=== PATIENT | female | born 1960 | race Caucasian/White ===

== ENCOUNTER 2018-01-10 16:03 | Inpatient (IN) | payer MEDICAID ==
[~2018-01-10] VITALS: Ht 157.5 cm; Wt 64.5 kg
[2018-01-10] MEDS ORDERED: LORAZEPAM 2 MG/1 ML VIAL IV ONE ×3 (16:30→18:30)
[2018-01-10] MEDS ORDERED: LORAZEPAM 2 MG/1 ML VIAL ONE ×3 (16:38→18:56)
[2018-01-10 16:39] LABS: BASOPHILS % (AUTO) 0.2 % (0.0-2.0); EOSINOPHILS % (AUTO) 0.4 % (0.0-7.0); HEMATOCRIT 39.8 % (31.2-41.9); HEMOGLOBIN 13.5 g/dL (10.9-14.3); LYMPHOCYTES # (AUTO) 0.3 K/uL (20.0-40.0); LYMPHOCYTES % (AUTO) 11.8 % (20.5-51.5); MEAN CORPUSCULAR HEMOGLOBIN 33.5 uug (24.7-32.8); MEAN CORPUSCULAR HGB CONC 34 g/dL (32.3-35.6); MEAN CORPUSCULAR VOLUME 98.5 fL (75.5-95.3); NEUTROPHILS # (AUTO) 1.9 K/uL (1.8-8.9); NEUTROPHILS % (AUTO) 86.6 % (38.5-71.5); PLATELET COUNT (AUTO) 165 K/uL (179-408); RED BLOOD CELL COUNT(AUTO) 4.04 MIL/uL (3.63-4.92); WHITE BLOOD COUNT (AUTO) 2.2 K/uL (3.8-11.8)
[2018-01-10 16:51] LABS: CARBON DIOXIDE 24 mmol/L (21-32); CHLORIDE 103 mmol/L (98-107); CREATININE 0.9 mg/dL (0.6-1.3); GLUCOSE 94 mg/dL (74-106); POTASSIUM 3.5 mmol/L (3.5-5.1); UREA NITROGEN, BLOOD 14 mg/dL (7-18)
[2018-01-10 16:58] LABS: ALANINE AMINOTRANSFERASE 54 U/L (14-59); ALKALINE PHOSPHATASE 104 U/L (50-136); ASPARTATE AMINOTRANSFERASE 58 U/L (15-37); BILIRUBIN,DIRECT 0.3 mg/dL (0.0-0.2); BILIRUBIN,TOTAL 0.9 mg/dL (0.2-1.0); CREATINE KINASE, TOTAL 439 U/L (26-192); TOTAL PROTEIN, SERUM 6.9 g/dL (6.4-8.2)
[2018-01-10 16:59] LABS: ACETAMINOPHEN < 2.0 ug/mL (10-30)
[2018-01-10 17:00] LABS: ETHANOL < 3 MG/DL (0-0)
[2018-01-10 17:05] LABS: THYROID STIMULATING HORMONE 0.722 mIU/mL (0.358-3.740)
[2018-01-10 17:40] LABS: *BILIRUBIN,URIN NEGATIVE (NEGATIVE); *BLOOD, URINE 2+ (NEGATIVE); *CLARITY,URINE SLIGHTLY CLOUDY (CLEAR); *COLOR,URINE YELLOW (YELLOW); *KETONES,URINE NEGATIVE (NEGATIVE); *PROTEIN,URINE 2+ (NEGATIVE); *UROBILINOGEN,URINE 0.2 E.U./dl (NORMAL); LEUKOCYTE ESTERASE ,URINE 2+ (NEGATIVE); NITRITE, URINE NEGATIVE (NEGATIVE); PH,URINE 6.5 (5.0-8.0); UGLUCOSE NEGATIVE (NEGATIVE)
[2018-01-10 17:45] LABS: *AMPHETAMINE, URINE NEGATIVE (NEGATIVE); *BARBITURATE, URINE NEGATIVE (NEGATIVE); *CANNABINOID, URINE NEGATIVE (NEGATIVE); *COCCAINE, URINE NEGATIVE (NEGATIVE); *OPIATE, URINE NEGATIVE (NEGATIVE); *PHENCYCLIDINE SCREEN,URINE NEGATIVE (NEGATIVE)
[2018-01-10] MEDS ORDERED: IV NORMAL SALINE 500 ML BAG IV ONE (17:45)
[2018-01-10 17:56] LABS: BACTERIA,URINE MODERATE /HPF (NONE SEEN); SQUAMOUS EPITHELIAL CELL,UR FEW /HPF (NONE SEEN); WBC,URINE 20-50 /HPF (0-3)
[2018-01-10] MEDS ORDERED: CEFTRIAXONE 1 G VIAL ONE ×2 (17:59→21:41)
[2018-01-10] MEDS ORDERED: IV NORMAL SALINE 1000 ML BAG IV ONE (18:00)
[2018-01-10] MEDS ORDERED: CEFTRIAXONE 2 G in IV DEXTROSE 5% 100 ML IV ONE (18:00)
[2018-01-10] MEDS ORDERED: LIDOCAINE HCL 2% 20 ML VIAL ONE (18:35)
[2018-01-10] MEDS ORDERED: ACETAMINOPHEN ES 500 MG TABLET ONE (18:55)
[2018-01-10] MEDS ORDERED: VANCOMYCIN IV 200 ML ONE (18:56)
[2018-01-10] MEDS ORDERED: ACETAMINOPHEN ES 500 MG TABLET PO ONE (19:00)
[2018-01-10] MEDS ORDERED: VANCOMYCIN IV 1,000 MG in IV DEXTROSE 5% 250 ML IV ONE (19:00)
[2018-01-10] MEDS ORDERED: BENA40TA8 PO (19:18)
[2018-01-10] MEDS ORDERED: DULO30CA2 PO (19:18)
[2018-01-10] MEDS ORDERED: ATOR20TA PO (19:18)
[2018-01-10 19:40] LABS: CSF GLUCOSE 60 mg/dL (40-70); CSF PROTEIN 34 mg/dL (15-45)
[2018-01-10] MEDS ORDERED: CEFTRIAXONE 1 G in IV DEXTROSE 5% 50 ML IV SCH (20:15)
[2018-01-10] MEDS ORDERED: ONDANSETRON 4 MG/2 ML VIAL IV PRN (20:15)
[2018-01-10] MEDS ORDERED: TEMAZEPAM 15 MG CAPSULE PO PRN (20:15)
[2018-01-10] MEDS ORDERED: ATORVASTATIN 20 MG TABLET PO SCH (21:00)
[2018-01-10 21:36] VITALS: BP 112/62
[2018-01-10] MEDS: ACETAMINOPHEN 325 MG TABLET PO PRN (21:40)
[2018-01-10] MEDS: POTASSIUM CHLORIDE 20 MEQ in IV NS 1000 ML 1,000 ML IV PRN (21:44)
[2018-01-11 00:05] VITALS: BP 105/60
[2018-01-11 04:00] VITALS: BP 91/55
[2018-01-11] MEDS: HYDROCODONE/APAP 5-325MG TABLET PO PRN ×3 (06:03→18:54)
[2018-01-11 06:26] LABS: BASOPHILS % (AUTO) 0.1 % (0.0-2.0); EOSINOPHILS % (AUTO) 0.1 % (0.0-7.0); HEMATOCRIT 35.4 % (31.2-41.9); LYMPHOCYTES # (AUTO) 0.6 K/uL (20.0-40.0); LYMPHOCYTES % (AUTO) 5.2 % (20.5-51.5); MEAN CORPUSCULAR HEMOGLOBIN 33.5 uug (24.7-32.8); MEAN CORPUSCULAR HGB CONC 34 g/dL (32.3-35.6); MEAN CORPUSCULAR VOLUME 98.5 fL (75.5-95.3); MONOCYTES # (AUTO) 0.6 K/uL (2.0-10.0); NEUTROPHILS % (AUTO) 89.6 % (38.5-71.5); PLATELET COUNT (AUTO) 125 K/uL (179-408); RED BLOOD CELL COUNT(AUTO) 3.59 MIL/uL (3.63-4.92); WHITE BLOOD COUNT (AUTO) 12.2 K/uL (3.8-11.8)
[2018-01-11 06:31] LABS: BILIRUBIN,TOTAL 0.4 mg/dL (0.2-1.0); CREATININE 0.7 mg/dL (0.6-1.3); MAGNESIUM 1.7 mg/dL (1.8-2.4); PHOSPHOROUS 3.8 mg/dL (2.5-4.9); POTASSIUM 3.8 mmol/L (3.5-5.1)
[2018-01-11] MEDS ORDERED: PANTOPRAZOLE SODIUM 40 MG TABLET.DR PO SCH (07:00)
[2018-01-11 07:31] VITALS: BP 113/74
[2018-01-11] MEDS ORDERED: DULOXETINE 30 MG CAPSULE.DR PO SCH (09:00)
[2018-01-11] MEDS: ACETAMINOPHEN 325 MG TABLET PO PRN (10:38)
[2018-01-11 11:43] VITALS: BP 123/77
[2018-01-11] MEDS ORDERED: MAGNESIUM SULFATE/D5W 100 ML IV SCH (11:45)
[2018-01-11 15:16] VITALS: BP 136/69
[2018-01-11] MEDS: POTASSIUM CHLORIDE 20 MEQ in IV NS 1000 ML 1,000 ML IV PRN (15:57)
[2018-01-11] MEDS ORDERED: ONDA4VIA30 IV (17:54)
[2018-01-11] MEDS ORDERED: CEFT1VIA15 IV (17:54)
[2018-01-11] MEDS ORDERED: PANT40TA2 PO (17:54)
[2018-01-11] MEDS ORDERED: ACET325T53 PO (17:54)
== END 2018-01-11 19:00 | disposition short-term general hospital (02) | DRG 720 ==
LOC: ER 16:07 → TELE-TD 20:58 → MED 01-11 13:50
PROVIDERS: ADMIT Internal Medicine; ATTEND Internal Medicine
PROC: 009U3ZX Drainage of Spinal Canal, Percutaneous Approach, Diagnostic (ICD-10-PCS; principal; 2018-01-10)
DX: A41.9 Sepsis, unspecified organism (principal); G93.41 Metabolic encephalopathy; D69.6 Thrombocytopenia, unspecified; I45.81 Long QT syndrome; I67.2 Cerebral atherosclerosis; I10 Essential (primary) hypertension; N39.0 Urinary tract infection, site not specified; R65.20 Severe sepsis without septic shock; I25.10 Atherosclerotic heart disease of native coronary artery without angina pectoris; Z95.5 Presence of coronary angioplasty implant and graft; G89.29 Other chronic pain; M54.9 Dorsalgia, unspecified; E53.8 Deficiency of other specified B group vitamins; R55 Syncope and collapse; F41.9 Anxiety disorder, unspecified; Z72.0 Tobacco use
CPT/HCPCS: 36415; 70030-TC; 70450; 71045; 80307; 83605; 83735; 84100; 84157; 84443; 85025; 87040; 87077; 87205; 93005; A4663; A9150; G0480; G0480-TC; J0696; J2060; J3370; J3475; J3480; J3490; J7030; J7060